=== PATIENT | female | born 1970 | race Caucasian/White ===

== ENCOUNTER → 2018-06-23 | Outpatient (CLI) | payer MEDICAID ==
--- NOTE | 2018-06-23 14:24 | XR ---
EXAMINATION TYPE: XR chest 2V DATE OF EXAM: 06/23/2018 COMPARISON: NONE TECHNIQUE: PA and lateral views submitted. HISTORY: Cough and congestion FINDINGS: The lungs are clear and there is no pneumothorax, pleural effusion, or focal pneumonia. Hypertrophi c and degenerative change of the vertebral column. No overt failure. IMPRESSION: 1. No acute process.
== END | disposition home or self-care (01) ==
LOC: RADXRMAIN 14:02
PROVIDERS: ATTEND Physician Assistant
DX: J44.1 Chronic obstructive pulmonary disease with (acute) exacerbation (principal)
CPT/HCPCS: 71046

== ENCOUNTER → 2019-10-05 | Outpatient (CLI) | payer OTHER ==
--- NOTE | 2019-10-06 08:03 | US ---
EXAMINATION TYPE: US pelvic complete DATE OF EXAM: 10/05/2019 COMPARISON: Pelvic ultrasound 2013 CLINICAL HISTORY: N83.299 other ovarian cyst. Patient thought her right ovary was removed due to cyst s, but upon imaging left ovary appears to be removed, hysterectomy TECHNIQUE: TA. Transabdominal sonographic images Date of LMP: 2012 EXAM MEASUREMENTS: Uterus: Surgically absent Endometrial Stripe: Surgically absent Right Ovary: 7.3 x 6.1 x 7.6 cm Left Ovary: Surgically absent 1. Uterus: Surgically absent 2. Endometrium: Surgically absent 3. Right Ovary: 7.3 x 5.9 x 6.5cm, cystic lesion 4. Left Ovary: Surgically absent 5. Bilateral Adnexa: wnl 6. Posterior cul-de-sac: wnl IMPRESSION: There is 7.3 x 5.9 x 6.5 cm thin-walled cyst in the right adnexa felt to be within the ri ght ovary on current study. Advise follow-up either in 3-6 months for resolution/re-characterizatio n or in 6-12 months for growth rate assessment due to size.
== END | disposition home or self-care (01) ==
LOC: RADUSWWP 16:23
PROVIDERS: ATTEND Family Medicine
DX: N83.201 Unspecified ovarian cyst, right side (principal)
CPT/HCPCS: 76856

== ENCOUNTER → 2019-12-14 | Outpatient (CLI) | payer OTHER ==
--- NOTE | 2019-12-15 06:44 | MR ---
EXAMINATION TYPE: MR pelvis wo/w con DATE OF EXAM: 12/14/2019 COMPARISON: Pelvic ultrasound October 05, 2019 and older ultrasound April 08, 2012 HISTORY: Ovarian cyst CONTRAST: Standard multiplanar, multisequence MRI departmental protocol utilizing 9.5 mL intravenous Gadavist g adolinium contrast. FINDINGS: Uterus noted partially surgically absent. There is a large 1.9 cm thin-walled cyst in the r emnant cervix axial image 24. Small remnant uterus sagittal image 18 with junctional zone thickening up to 14 mm. Tiny T2 hyperintense cysts with heterogeneity along cranial portion. No free fluid seen in pelvic cul-de-sac. Corresponding to recent ultrasound there is remnant right ovary with dominant 6.6 x 6.2 x 5.7 cm thin -walled cyst axial image 29 and sagittal image 29. No suspicious solid nodularity or thickened septa. There is smaller thin-walled cyst posterior to this on current study. Left ovary noted surgically ab sent. Visualized bladder shows mild wall thickening along posterior inferior margin. No suspicious bowel dilatation. Visualized osseous structures are intact. No pelvic or groin adenopat hy. No groin hernia. IMPRESSION: Confirmation of 6.6 cm thin-walled cyst right ovary. No significant interval change from most recent ultrasound. Benign simple cyst. Most likely nonneoplastic or very slow growing benign yeison plasm. Recommend follow-up in 2 years to document stability and understand growth rate. Adenomyosis n oted in remnant lower uterine segment.
== END | disposition home or self-care (01) ==
LOC: RADMRIMAIN 19:02
PROVIDERS: ATTEND Family Medicine
DX: N83.201 Unspecified ovarian cyst, right side (principal); N80.0 Endometriosis of uterus
CPT/HCPCS: 72197; A9585

== ENCOUNTER 2019-12-16 08:59 | Day surgery (SDC) | payer OTHER ==
[2019-12-15 11:27] VITALS: BMI 32.6
--- NOTE | 2019-12-16 08:05 | P.GSHP ---
History of Present Illness H&P Date: 12/16/19 CHIEF COMPLAINT: Colon screen HISTORY OF PRESENT ILLNESS: The patient is a 49-year-old female who presents for colon screen. Lower endoscopy was offered for further evaluation and management. PAST MEDICAL HISTORY: Please see list. PAST SURGICAL HISTORY: Please see list. MEDICATIONS: Please see list. ALLERGIES: Please see list. SOCIAL HISTORY: No illicit drug use FAMILY HISTORY: No reports of Crohn disease or ulcerative colitis. REVIEW OF ORGAN SYSTEMS: CONSTITUTIONAL: No reports of fevers or chills. PHYSICAL EXAM: VITAL SIGNS: Stable GENERAL: Well-developed pleasant in no acute distress. HEENT: No scleral icterus. Extraocular movements grossly intact. Moist buccal mucosa. NECK: Supple without lymphadenopathy. CHEST: Unlabored respirations. Equal bilateral excursions. CARDIOVASCULAR: Regular rate and rhythm. Distal 2+ pulses. ABDOMEN: Soft, nontender, nondistended. MUSCULOSKELETAL: No clubbing, cyanosis, or edema. ASSESSMENT: 1. Colon screen. PLAN: 1. Recommend proceeding with a lower endoscopy Past Medical History Additional Past Medical History / Comment(s): ABD. CRAMPING AND BLOOD IN STOOL History of Any Multi-Drug Resistant Organisms: None Reported Past Surgical History: Hysterectomy Past Anesthesia/Blood Transfusion Reactions: No Reported Reaction Smoking Status: Former smoker - Past Family History Mother Family Medical History: No Reported History Medications and Allergies Home Medications Medication Instructions Recorded Confirmed Type Ibuprofen [Motrin] 800 mg PO Q8H PRN 12/15/19 12/15/19 History Allergies Allergy/AdvReac Type Severity Reaction Status Date / Time Penicillins Allergy Rash/Hives Verified 12/15/19 11:23
[~2019-12-16 08:59] MED LIST: LACTATED RINGERS 1,000 ML IV SCH; MIDAZOLAM 2 MG/2 ML VIAL IV PRN; ONDANSETRON 4 MG/2 ML VIAL IVP PRN; fentaNYL (PF) 50 MCG/ML 2 ML AMP IV PRN
[2019-12-16 09:14] VITALS: RESP 16; TEMP 98.6
[2019-12-16] MEDS ORDERED: LIDOCAINE 1% (10MG/ML) FOR IV START INTRADERMA ONE (09:21)
[2019-12-16] MEDS ORDERED: PROPOFOL 10 MG/ML 20 ML VIAL IV ONE (09:31)
[2019-12-16] MEDS ORDERED: MIDAZOLAM 2 MG/2 ML VIAL ONE (09:31)
--- NOTE | 2019-12-16 10:15 | P.PCN ---
Date of Procedure: 12/16/19 Description of Procedure: PREOPERATIVE DIAGNOSIS: Family history colon polyps, mother History of rectal bleeding POSTOPERATIVE DIAGNOSIS: Family history colon polyps, mother Arteriovenous malformation History of rectal bleeding OPERATION: Colonoscopy with ablation arteriovenous malformation using Erbe cautery Colonoscopy to the cecum, ileocecal valve and appendiceal orifice. SURGEON: Dianna Manning MD. ANESTHESIA: MAC. INDICATIONS: The patient is a 49-year-old female who presents with history of rectal bleeding. Benefits and risks were described and informed consent was obtained. DESCRIPTION OF PROCEDURE: The patient had undergone Suprep. She had been brought into the operating room and laid in the left lateral decubitus position. After adequate intravenous sedation, the rectum was examined with 2% lidocaine jelly. No external hemorrhoids were encountered. The rectal tone was within normal limits. No lesions were palpated in the rectal vault. An Olympus colonoscope was advanced until the cecum, ileocecal valve and appendiceal orifice were clearly viewed. The prep was excellent. The sigmoid colon was highly redundant requiring abdominal wall pressure. No scattered diverticulosis was encountered. No colonic polyps were found. No evidence of focal colitis was found. At 15 cm from the anal verge, sigmoid colon, an arteriovenous malformation was identified and ablated using the cautery device. Retroflexion of the scope demonstrated grade 1 internal hemorrhoids without active bleeding or inflammation. The colon was desufflated. The patient had tolerated the procedure well. Withdrawal time was over 6 minutes. FINDINGS: Aronchick preparation quality scale 1(1-5) Highly redundant sigmoid colon Internal hemorrhoids, grade 1 No external prolapsed hemorrhoids. Arteriovenous malformation at sigmoid colon ablated No adenomatous polyps. No focal colitis. RECOMMENDATIONS: Lower endoscopy in 2024 Plan - Discharge Summary Discharge Rx Participant: No New Discharge Prescriptions: Continue Ibuprofen [Motrin] 800 mg PO Q8H PRN PRN Reason: Pain Discharge Medication List Ibuprofen [Motrin] 800 mg PO Q8H PRN 12/15/19 [History] Follow up Appointment(s)/Referral(s): Dianna Manning MD [STAFF PHYSICIAN] - 12/29/19 Patient Instructions/Handouts: Rectal Bleeding (DC), *Surgery [facility] - (Anesthesia) Endoscopy Discharge Instructions Activity/Diet/Wound Care/Special Instructions: Colonoscopy colonoscopy in years2024 Discharge Disposition: HOME SELF-CARE
[2019-12-16 10:31] VITALS: BP 120/80; PULSE 56
== END 2019-12-16 11:07 | disposition home or self-care (01) ==
LOC: ORWHC2ENDO 08:59
PROVIDERS: ATTEND Surgery Plastic and Reconstructive Surgery
DX: Q27.33 Arteriovenous malformation of digestive system vessel (principal); K64.0 First degree hemorrhoids; Q43.8 Other specified congenital malformations of intestine; F41.9 Anxiety disorder, unspecified; Z88.0 Allergy status to penicillin; Z88.2 Allergy status to sulfonamides; Z90.710 Acquired absence of both cervix and uterus; Z87.891 Personal history of nicotine dependence; Z83.71 Family history of colonic polyps
CPT/HCPCS: 45388; J2250; J2704

== ENCOUNTER → 2022-05-03 | Outpatient (CLI) | payer OTHER ==
--- NOTE | 2022-05-03 16:57 | US ---
EXAMINATION TYPE: US pelvic complete DATE OF EXAM: 05/03/2022 COMPARISON: US pelvis 2019, MR pelvis 12/14/2019 CLINICAL HISTORY: N83.201 OVARIAN CYST. Right pelvic pain, history right ovarian cyst, history of hys terectomy and left oophorectomy TECHNIQUE: . Transabdominal sonographic images of the pelvis were acquired. EXAM MEASUREMENTS: Right Ovary: 8.5 x 7.2 x 6.8 cm 1. Uterus: surgically absent 2. Endometrium: surgically absent 3. Right Ovary: 6.4 x 5.2 x 6.1cm cyst 4. Left Ovary: surgically absent 5. Bilateral Adnexa: wnl 6. Posterior cul-de-sac: wnl Uterus and endometrium are surgically absent. Left ovary surgically absent. No free fluid. Right ovar y demonstrates a thin-walled anechoic cyst measuring 6.4 x 5.2 x 6.1 cm. No mural nodularity or septa tions identified. IMPRESSION: 1. Stable thin-walled cyst within the right ovary measuring up to 6.4 cm. This is favored to be antonieta gn due to stability from 2019 2. Uterus and left ovary surgically absent.
== END | disposition home or self-care (01) ==
LOC: RADUSWWP 14:57
PROVIDERS: ATTEND Family Medicine
DX: N83.201 Unspecified ovarian cyst, right side (principal); Z90.710 Acquired absence of both cervix and uterus; Z90.721 Acquired absence of ovaries, unilateral
CPT/HCPCS: 76856

== ENCOUNTER → 2023-05-24 | Outpatient (CLI) | payer BC ==
[2023-05-24 15:48] LABS: Basophils # (A) 0.05 X 10*3/uL (0.00-0.10); Basophils % (A) 0.5 %; Eosinophils # (A) 0.12 X 10*3/uL (0.04-0.35); Eosinophils % (A) 1.3 %; HCT 41.7 % (37.2-46.3); HGB 13.7 g/dL (12.0-15.0); Lymphocytes # (A) 2.14 X 10*3/uL (0.90-5.00); Lymphocytes % (A) 22.7 %; MCH 31.4 pg (27.0-32.0); MCHC 32.9 g/dL (32.0-37.0); MCV 95.4 FL (80.0-97.0); Mean Platelet Volume 10.9 FL (9.5-12.2); Monocytes # (A) 0.64 X 10*3/uL (0.20-1.00); Monocytes % (A) 6.8 %; NRBC Per 100 WBC 0 X 10*3/uL (0.00-0.01); Neutrophils # (A) 6.47 X 10*3/uL (1.80-7.70); Neutrophils % (A) 68.5 %; Platelet Count 335 X 10*3/uL (140-440); RBC 4.37 X 10*6/uL (4.10-5.20); RDW 12.1 % (11.5-14.5); WBC 9.44 X 10*3/uL (4.50-10.00)
[2023-05-24 16:10] LABS: ALT 31 U/L (8-44); AST 21 U/L (13-35); Albumin 4.7 g/dL (3.8-4.9); Albumin/Globulin Ratio 1.57 Ratio (1.60-3.17); Alkaline Phosphatase 64 U/L (41-126); BUN/Creat Ratio 22.38 Ratio (12.00-20.00); Blood Urea Nitrogen 17.9 mg/dL (9.0-27.0); Carbon Dioxide 27.5 mmol/L (21.6-31.8); Chloride 103 mmol/L (96-109); Glucose 105 mg/dL (70-110); Potassium 4.4 mmol/L (3.5-5.5); Sodium 140 mmol/L (135-145); Total Bilirubin 0.6 mg/dL (0.3-1.2); Total Protein 7.7 g/dL (6.2-8.2)
[2023-05-24 16:31] LABS: T4, Free (Free Thyroxine) 1.17 ng/dL (0.80-1.80)
== END | disposition home or self-care (01) ==
LOC: LABWHC1 09:03
PROVIDERS: ATTEND Psychiatry & Neurology Psychiatry
DX: F90.0 Attention-deficit hyperactivity disorder, predominantly inattentive type (principal); F41.1 Generalized anxiety disorder; F33.1 Major depressive disorder, recurrent, moderate; F40.10 Social phobia, unspecified
CPT/HCPCS: 36415; 80053; 82306; 82607; 82746; 84439; 84443; 84481; 85025